=== PATIENT | male | born 1945 | race Caucasian/White ===

== ENCOUNTER 2017-07-15 23:38 | Observation (INO) | payer MEDICARE ==
[2017-07-16 00:34] LABS: #Lymphocytes 1.7 thou/uL (1.20-3.40); #Monocytes 0.4 thou/uL (0.11-0.59); #Neutrophils 7.5 thou/uL (1.40-6.50); %Basophils 0.2 % (0.0-1.0); %Eosinophils 0.4 % (0.0-10.0); %Lymphocytes 17.7 % (21.0-51.0); %Monocytes 4.1 % (0.0-10.0); %Neutrophils 77.7 % (42.0-75.0); Hemoglobin 11.7 g/dL (14.0-18.0); Mean Corpuscular HGB CONC 34.8 g/dL (32.0-36.0); Mean Corpuscular Volume 94.8 fl (80.0-94.0); Mean Platelet Volume 6.4 fL (7.4-10.4); Platelet Count 223 thou/uL (130-400); RBC Distribution Width 12.4 % (11.5-14.5); Red Blood Cell (RBC) Count 3.55 mill/uL (4.70-6.10); White Blood Cell (WBC) Count 9.6 thou/uL (4.8-10.8)
[2017-07-16 00:41] LABS: INR-International Normal Ratio 1.2; PTT 27.6 SEC (22.9-36.1); Prothrombin Time 15.4 SEC (12.0-14.7)
[2017-07-16 00:56] LABS: ALT (SGPT) 17 U/L (8-55); AST (SGOT) 12 U/L (5-34); Albumin 3.6 g/dL (3.4-4.8); Alkaline Phosphatase 60 U/L (40-150); Anion Gap 15 mmol/L (10-20); BUN (Urea Nitrogen) 28 mg/dL (8.4-25.7); Bilirubin, Total 0.5 mg/dL (0.2-1.2); Calc. Creatinine Clearance 0 mL/min (70-130); Calcium 8.6 mg/dL (7.8-10.44); Carbon Dioxide 24 mmol/L (23-31); Chloride 94 mmol/L (98-107); Estimated GFR-MDRD 81; Globulin 2.7 g/dL (2.4-3.5); Glucose 131 mg/dL (80-115); Lipase 13 U/L (8-78); Magnesium 1.9 mg/dL (1.6-2.6); Potassium 3.1 mmol/L (3.5-5.1); Protein, Total 6.3 g/dL (5.8-8.1); Sodium 130 mmol/L (136-145)
[2017-07-16 00:59] LABS: CKMB 1.3 ng/mL (0-6.6); Troponin I Less than 0.010 ng/mL (< 0.028)
[2017-07-16] MEDS ORDERED: Potassium Chloride 20 MEQ TAB ONE (01:26)
[2017-07-16] MEDS: Sodium Chloride 0.9% 1,000 ML IV SCH ×2 (03:46→15:41)
[2017-07-16 05:39] LABS: Lactic Acid 2.9 mmol/L (0.5-2.2)
[2017-07-16] MEDS ORDERED: Zolpidem Tartrate 5 MG TAB PO PRN (10:51)
[2017-07-16] MEDS ORDERED: Morphine 4 MG/ML VIAL SLOW IVP PRN (10:51)
[2017-07-16] MEDS ORDERED: Acetaminophen 500 MG TAB PO PRN (10:51)
[2017-07-16] MEDS ORDERED: Ondansetron HCl/PF 4 MG/2 ML Vial IVP PRN (10:51)
--- NOTE | 2017-07-16 10:58 | PDOC.EVN ---
Event Note - Event Note Event Note: [facility] #[id number]
--- NOTE | 2017-07-16 11:24 | HP ---
DATE OF ADMISSION: 07/16/2017 CHIEF COMPLAINT: Nosebleed and black stools. HISTORY OF PRESENT ILLNESS: This is a 71-year-old male who states that he has been having nosebleeds for the past 2-3 days significant in nature. He states that everything started about a few months ago and he has been having nosebleeds on and off for the past few months. States that they come and resolves and then comes and resolves. The patient states that he started to have black tarry stools as well about 2 days ago and decided that either he has an internal bleed or his nosebleed is what is now presenting itself. Patient decided to come to the hospital because he takes Xarelto 20 mg daily for atrial fibrillation. The patient states that he was also feeling significantly weak and getting short of breath upon ambulation. Admitted to increased sleepiness as well and decrease in energy. The patient otherwise denies any other nausea, vomiting, diarrhea, constipation, fevers, chills or chest pains. Does admit to shortness of breath as stated earlier upon exertion. The patient denies any other relieving or aggravating factors. Denies any other associated symptoms. No pain issues whatsoever. Patient states that he sees Dr. No for Cardiology and would like to see him during this admission to see if doses for Xarelto needs to be adjusted. No family at bedside. The patient is seen and examined in the hospital room. All questions answered. ALLERGIES: PENICILLIN. States that he has hives and allergic rash upon taking the drug. PAST MEDICAL HISTORY: Atrial fibrillation, obesity. PAST SURGICAL HISTORY: None. FAMILY HISTORY: Positive for hypertension and coronary artery disease. SOCIAL HISTORY: The patient does not smoke, but does state that he drinks about 3-6 beers a day. REVIEW OF SYSTEMS: Twelve-point review of systems performed and pertinent positives in the HPI, otherwise negative. PHYSICAL EXAMINATION: VITAL SIGNS: Blood pressure is 120/75, respiratory rate of 20, O2 saturations 97% on room air, pulse of 86, and temperature of 98.2. GENERAL: Patient is lying in bed in no acute distress. HEENT: Pupils are equal, round, react to light and accommodation. Normocephalic and atraumatic. Dried blood noted in nares as well as in nostrils. LUNGS: Clear to auscultation bilaterally. No wheezing noted. CARDIOVASCULAR: Irregularly irregular rhythm noted. S1, S2. No murmurs, rubs or gallops appreciated. ABDOMEN: Rotund, positive, soft, nontender. EXTREMITIES: 2+ peripheral pulses with trace edema bilaterally. NEUROLOGIC: Cranial nerves II-XII intact. Alert and oriented x3. No loss of motor or sensory function. LABORATORY DATA: CBC: Hemoglobin 11.7, hematocrit 33.6, WBC count of 9.6, platelet count of 223. PT 15.4, INR 1.2, and PTT 27.6. BMP shows sodium 130, potassium 3.1, bicarbonate of 94, chloride of 94, BUN of 28 and creatinine of 0.93. Patient's glucose is 131. Lactic acid initial was 4.1 and on repeat is 3.9. The rest of BMP is within normal limits. ASSESSMENT AND PLAN: 1. Epistaxis. 2. Gastrointestinal bleed. 3. Atrial fibrillation. 4. Hyponatremia. 5. Hypokalemia. 6. Lactic acidosis. 7. Hyperlipidemia and obesity. PLAN: At this point in time, we will admit to Internal Medicine Team. We will consult ENT, GI as well as Cardiology. The patient likely needs to have his Xarelto dose adjusted potentially decreased from 20 to 10. We will defer to Cardiology for further management and care as they have been following him outpatient and know the patient better. We will also consult ENT for any possible intervention if necessary and GI for any possible intervention if necessary. Currently, the patient is stable. Continue IV fluids, placed on clear liquid diet. We will advance as tolerated, starting tomorrow. We will obtain lab work in the morning. SCDs for DVT prophylaxis. Hold the Xarelto for now. Protonix being given as well 40 IV q.12, potassium to be repeated and repeat labs in the morning. Further management per specialist. Case and plan discussed with the patient at length. He understands and agrees with this plan. GABRIELLA
[2017-07-16] MEDS: Furosemide 40 MG TAB PO SCH (14:51)
[2017-07-16] MEDS: Carvedilol 25 MG TAB PO SCH (20:56)
[2017-07-16] MEDS: Pantoprazole 40 MG VIAL IVP SCH (20:57)
--- NOTE | 2017-07-16 21:08 | CON ---
DATE OF CONSULTATION: 07/16/2017 HISTORY OF PRESENT ILLNESS: The patient is a 71-year-old gentleman with cardiomyopathy and chronic atrial fibrillation who presents for evaluation after having epistaxis and nearly losing consciousness Cricket morning. The patient in 09/2014 underwent a nuclear stress test. He was found to have an ejection fraction only 37%. The patient has been followed by Dr. No. He has declined placement of an automatic implantable cardiac defibrillator. The patient has also been diagnosed with atrial fibrillation,and has been on chronic anticoagulation therapy. The patient unfortunately continues to consume significant amount of alcohol. The patient was in his usual state of health when the patient started noticing having nasal hemorrhage. This lasted for several days. He became weak and came to the emergency room for further evaluation. PAST MEDICAL HISTORY: 1. Cardiomyopathy. 2. Atrial fibrillation. 3. Hypertension. 4. Coronary artery disease. PAST SURGICAL HISTORY: None. SOCIAL HISTORY: Nonsmoker. Long history of ethanol abuse. MEDICATIONS: Xarelto 20 daily, potassium 20 daily, lisinopril 5 daily, Lasix 40 b.i.d., an Coreg 25 b.i.d. ALLERGIES: PENICILLIN. REVIEW OF SYSTEMS: Ten point system notable for dark tarry stools. PHYSICAL EXAMINATION: GENERAL: This is an obese gentleman in no acute distress. VITAL SIGNS: Blood pressure 114/79. NECK: Full. LUNGS: Clear to auscultation. HEART: Irregular rate and rhythm, normal S1, S2. ABDOMEN: Distended. EXTREMITIES: Showed trace edema. SKIN: Warm and dry. NEUROLOGIC: Nonfocal. VASCULAR: Radial pulses are 2+. LABORATORY DATA: His white blood cell count was 6.6, hemoglobin 11.7, hematocrit 36.6 and his platelets were 223. IMPRESSION: 1. Epistaxis. 2. Proximal atrial fibrillation. 3. Cardiomyopathy. 4. Hypertension. 5. Ethanol abuse. 6. Obesity. IMPRESSION AND PLAN: This gentleman presents with epistaxis. I would recommend that he probably be switched to Eliquis. We will await ENT and GI evaluation. We will restart this medications shortly. We will follow this patient with you through his hospitalization. GABRIELLA
[2017-07-16] MEDS ORDERED: Lisinopril 5 MG TAB PO SCH (21:15)
[2017-07-17 01:48] VITALS: BMI 38.2
[2017-07-17 05:03] LABS: #Eosinphils 0.1 thou/uL (0.0-0.7); #Lymphocytes 2.8 thou/uL (1.20-3.40); #Monocytes 0.7 thou/uL (0.11-0.59); #Neutrophils 4.3 thou/uL (1.40-6.50); %Basophils 0.4 % (0.0-1.0); %Eosinophils 1.4 % (0.0-10.0); %Lymphocytes 35.2 % (21.0-51.0); %Monocytes 8.5 % (0.0-10.0); %Neutrophils 54.4 % (42.0-75.0); Hemoglobin 11.1 g/dL (14.0-18.0); Mean Corpuscular HGB CONC 35.8 g/dL (32.0-36.0); Mean Corpuscular Hemoglobin 34.8 pg (27.0-31.0); Mean Corpuscular Volume 97.3 fl (80.0-94.0); Mean Platelet Volume 6.9 fL (7.4-10.4); Platelet Count 216 thou/uL (130-400); RBC Distribution Width 12.5 % (11.5-14.5); Red Blood Cell (RBC) Count 3.19 mill/uL (4.70-6.10); White Blood Cell (WBC) Count 7.9 thou/uL (4.8-10.8)
[2017-07-17 05:29] LABS: Anion Gap 11 mmol/L (10-20); BUN (Urea Nitrogen) 15 mg/dL (8.4-25.7); Calc. Creatinine Clearance 158 mL/min (70-130); Carbon Dioxide 28 mmol/L (23-31); Chloride 99 mmol/L (98-107); Estimated GFR-MDRD Greater than 90; Glucose 118 mg/dL (80-115); Potassium 3.5 mmol/L (3.5-5.1); Sodium 134 mmol/L (136-145)
[2017-07-17] MEDS ORDERED: Potassium Citrate 10 MEQ TAB PO SCH (09:00)
[2017-07-17] MEDS ORDERED: Lisinopril 5 MG TAB PO SCH (09:00)
[2017-07-17] MEDS ORDERED: Non-Formulary Item 1 EACH (Potassium Chloride [Potassium Chloride] 20 MEQ) PO SCH (09:00)
--- NOTE | 2017-07-17 09:04 | CON ---
DATE OF CONSULTATION: 07/16/2017 HISTORY OF PRESENT ILLNESS: Mr. Fishman is a 71-year-old who I have been asked to see with dandy pinto to melena. He reports that starting 2 days ago on Monday, he began to have a nosebleed that he wa s not able to get it to stop until yesterday evening. About the time it started slowing, he had a bl ack tarry stool. He had 1 more and he began to feel so weak, so that he decided to come to the [facility]. He in fact had been feeling weak starting Monday night. He has had some nosebleeds on and off and actually for several months he has felt pretty congested, like he has chronic sinus problem. He is on Xarelto. He has never had any stomach ulcers or he had no hematochezia and he had no bright re d blood. He had no hematemesis. He feels that he was bleeding quite a bit from his nose and swallow ed quite a bit of blood. PAST MEDICAL HISTORY: Atrial fibrillation, hypertension, and osteoarthritis. PAST SURGICAL HISTORY: None. ALLERGIES: PENICILLIN causes hives and rash. FAMILY HISTORY: Hypertension and coronary artery disease. SOCIAL HISTORY: The patient has smoked. Drinks about 3-6 beers a day and dips snuff. REVIEW OF SYSTEMS: Negative for dysphagia, odynophagia, change in appetite, change in weight, change in bowel function before this admission. He states he has never had a colonoscopy and really does n ot intend to. He denies taking any [id number] pain relievers other than Tylenol. He understan ds he should take NSAIDs with Xarelto. Presently, he has had no further bleeding. He wants to eat. HOME MEDICATIONS: Xarelto, lisinopril, Lasix, and carvedilol. PRESENT MEDICATIONS: Carvedilol, Lasix, lisinopril, Protonix, Ambien p.r.n. PHYSICAL EXAMINATION: GENERAL: Patient is resting comfortably in bed. He is working on his computer drinking some coffee. He is in no distress. VITAL SIGNS: Pulse is 86-105, temperature is 98, blood pressure 142/93. HEENT: Conjunctivae and sclerae are clear. His mucosal membranes are pink and moist. NECK: Supple, without adenopathy. LUNGS: Clear. HEART: Regular with no murmurs. ABDOMEN: Protuberant but soft and nontender. EXTREMITIES: No clubbing, cyanosis or edema. LABORATORY DATA AND X-RAY FINDINGS: White count was 9.6, hemoglobin 11.7, it is 14.4 on 07/21/2016, MCV is 94. INR 1.2. BUN and creatinine are 28 and 0.93. Sodium 130, potassium 3.1. Liver function tests normal. Albumin 3.6 and serum protein 6.3. ASSESSMENT AND PLAN: Melena secondary to epistaxis. He has been having nosebleeds for on and off fo r few months with some feeling of chronic sinus pressure and finally he has had bleeding about for th e past 24-36 hours, and he could not stop until he stopped taking his Xarelto. He has no gastrointes tinal symptoms. RECOMMENDATIONS: Agree with ulcer prophylaxis with PPI. This seems to be pretty straightforward jil e of epistaxis with swallowed blood causing melena. He has never had a colonoscopy. I have offered him one in the outpatient setting. He does not want to do that, but he said think about it. RECOMMENDATIONS: 1. Agree with PPI empirically. 2. ENT consult. 3. No plans for endoscopy at this point in time, this is not a gastrointestinal bleed.
[2017-07-17] MEDS: Carvedilol 25 MG TAB PO SCH (09:17)
[2017-07-17] MEDS: Furosemide 40 MG TAB PO SCH ×2 (09:17→14:39)
[2017-07-17] MEDS: Pantoprazole 40 MG VIAL IVP SCH (09:17)
[2017-07-17] MEDS: Apixaban 5 MG TAB PO SCH (11:11)
[2017-07-17 12:06] VITALS: BP 122/59; TEMP 97.6
[2017-07-17 13:08] LABS: Hemoglobin 11.4 g/dL (14.0-18.0); Platelet Count 230 thou/uL (130-400)
[2017-07-17 13:28] LABS: Calc. Creatinine Clearance 162 mL/min (70-130); Estimated GFR-MDRD Greater than 90
--- NOTE | 2017-07-17 13:29 | DIS ---
DATE OF ADMISSION: 07/16/2017 DATE OF DISCHARGE: 07/17/2017 DISCHARGE DIAGNOSES: 1. Acute epistaxis secondary to Xarelto. 2. Question of maxillary sinusitis. 3. Chronic atrial fibrillation, rate controlled with chronic anticoagulation with Eliquis. 4. Hyponatremia, chronic. 5. Hypokalemia, resolved. 6. Lactic acidosis secondary to #1, resolving. 7. Chronic macrocytic anemia, stable. CONSULTATIONS: Dr. Ulloa with Cardiology Service. Dr. Frausto with GI Service. PERTINENT LABORATORY DATA AND X-RAY FINDINGS: Sodium ranged between 130-134, potassium ranged betwee n 3.1-3.5. Lactic acid level ranged between 2.9-4.1, magnesium 1.9. LFTs within normal limits. Tro ponin I negative x1. Albumin 3.6, lipase 13. CBC showed hemoglobin ranging between 11.1-11.7, MCV 9 7, PT 15.4, INR 1.2 and PTT 27.6. HOSPITAL COURSE: Patient was placed on observation status after initially presenting with acute epis taxis in the context of chronic Xarelto therapy due to chronic atrial fibrillation. The patient also was noting melenic stools after the epistaxis evaluated by the GI Service. Due to patient's swallow ing of the blood, patient developed melena without true GI bleed. The patient was placed on a proton pump inhibitor; however, no specific intervention was recommended by the GI Service. The patient wa s telephonically consulted with ENT Service with recommendations for outpatient followup and close mo nitoring for recurrence of bleeding. The patient was transitioned from Xarelto to Eliquis 5 mg b.i.d . and exhibited no recurrence of epistaxis during the hospital course. The patient overall remained clinically stable through the hospital course, tolerating regular oral intake, ambulating without ass istance or difficulty. Telemetry monitoring did show atrial fibrillation with controlled rate in the 70s. On the day of discharge, I have examined and discussed results of the patient's testing and re commendations for followup with ENT Service. Patient does verbalize understanding. Physical exam is unremarkable with lungs clear to auscultation bilaterally and cardiovascular exam showing S1 and S2 with irregular rate and rhythm. The patient overall clinically stable and ready for discharge on 05/2017. DISCHARGE MEDICATIONS: 1. Eliquis 5 mg 1 tab p.o. b.i.d. 2. Zithromax 250 mg p.o. daily x14 days. 3. Coreg 25 mg p.o. b.i.d. 4. Lasix 40 mg p.o. daily. 5. Lisinopril 5 mg p.o. daily. 6. Protonix 40 mg p.o. daily. 7. Potassium chloride 20 mEq p.o. daily. FOLLOWUP: The patient will follow up with Dr. No with [facility] and to call his office for appointment time and date. The patient will follow up with Dr. Alin Farias [facility] and to call his office for appointment time. CONDITION ON DISCHARGE: Stable. ACTIVITY: Ad katya. DIET: Heart healthy. CODE STATUS: FULL. DISPOSITION: Home 07/17/2017.
--- NOTE | 2017-07-17 22:07 | EKG ---
Test Reason : STAT Blood Pressure : / mmHG Vent. Rate : 112 BPM Atrial Rate : 178 BPM P-R Int : 000 ms QRS Dur : 100 ms QT Int : 350 ms P-R-T Axes : 000 -15 062 degrees QTc Int : 477 ms Atrial fibrillation with rapid ventricular response with premature ventricular or aberrantly conducte d complexes Nonspecific ST and T wave abnormality Abnormal ECG When compared with ECG of 21-JUL-2016 21:54, No significant change was found Confirmed by TOBY ROCHA M.D. ([id number]) on 07/17/2017 10:06:52 PM Referred By: UGO Confirmed By:TOBY ROCHA M.D.
== END 2017-07-17 17:29 | disposition home or self-care (01) ==
LOC: ERS 23:38 → SURG A 07-16 01:23 → 2SW 07-16 19:52
PROVIDERS: ADMIT Internal Medicine; ATTEND Internal Medicine
DX: R04.0 Epistaxis (principal); D68.32 Hemorrhagic disorder due to extrinsic circulating anticoagulants; T45.515A Adverse effect of anticoagulants, initial encounter; I48.2 Chronic atrial fibrillation; E87.1 Hypo-osmolality and hyponatremia; E87.6 Hypokalemia; E87.2 Acidosis; D53.9 Nutritional anemia, unspecified; K92.1 Melena; E78.5 Hyperlipidemia, unspecified; M19.90 Unspecified osteoarthritis, unspecified site; F10.10 Alcohol abuse, uncomplicated; E66.9 Obesity, unspecified; Z68.38 Body mass index [BMI] 38.0-38.9, adult; Z79.01 Long term (current) use of anticoagulants; Z79.899 Other long term (current) drug therapy; Z88.0 Allergy status to penicillin
CPT/HCPCS: 80048; 80053; 82553; 82565; 83605; 83690; 83735; 84484; 85014; 85018; 85025 ×2; 85049; 85610; 85730; 86850; 86900; 86901; 93005; 96374; 96376; 99285; G0378 ×2; 36415; 93010; C9113